=== PATIENT | female | born 1965 | race Caucasian/White ===

== ENCOUNTER → 2016-05-29 | Outpatient (CLI) | payer BC ==
[~2016-05-29] MED LIST: CALCIUM600 MG PO; ESTRADERM 0.05 M1 EA TOP; FLEXERIL 10 MG10 MG PO; LORTAB 7.5-3251 EACH PO; NEURONTIN 300300 MG PO; PANTOPRAZOLE SO40 MG PO; PERCOCET 10-321 EACH PO; POTASSIUM99 M1 PO; TRIAMTERENE-HC1 EACH PO; XARELTO10 MG PO
[2016-05-29 11:23] LABS: HEMOGLOBIN 14.3 gm/dl (12.3-15.3); RED BLOOD COUNT 4.86 M/UL (4.00-5.10); WHITE BLOOD COUNT 6.3 K/UL (4.5-11.0)
[2016-05-29 11:42] LABS: BUN/CREATININE RATIO 16 (0-10)
== END ==
LOC: OPSV2 10:00 → EDSTATUS 10:00 → OPSV2 10:11
PROVIDERS: Orthopaedic Surgery
DX: Z01.810 Encounter for preprocedural cardiovascular examination (principal); Z01.812 Encounter for preprocedural laboratory examination; M17.12 Unilateral primary osteoarthritis, left knee
CPT/HCPCS: 36415; 80048; 81001; 83036; 85025; 86140; 87081; 93005

== ENCOUNTER → 2016-06-11 | Outpatient (CLI) | payer BC ==
[2016-06-11 10:44] LABS: BUN/CREATININE RATIO 18 (0-10)
== END ==
LOC: LAB 09:17
PROVIDERS: Orthopaedic Surgery
DX: Z01.812 Encounter for preprocedural laboratory examination (principal)
CPT/HCPCS: 36415; 80048; 86850; 86900; 86901

== ENCOUNTER 2016-06-12 05:42 | Observation (INO) | payer BC ==
[~2016-06-12] VITALS: Ht 157.5 cm; Wt 111.6 kg
[2016-06-12] MEDS ORDERED: ESTRADERM 0.05 M1 EA TOP (06:44)
[2016-06-12] MEDS ORDERED: PANTOPRAZOLE SO40 MG PO (06:45)
[2016-06-12] MEDS ORDERED: NEURONTIN 300300 MG PO (06:45)
[2016-06-12] MEDS ORDERED: FLEXERIL 10 MG10 MG PO (06:45)
[2016-06-12] MEDS ORDERED: TRIAMTERENE-HC1 EACH PO (06:46)
[2016-06-12] MEDS ORDERED: POTASSIUM99 M1 PO (06:47)
[2016-06-12] MEDS ORDERED: CALCIUM600 MG PO (06:47)
[2016-06-12] MEDS ORDERED: LORTAB 7.5-3251 EACH PO (06:47)
[2016-06-13 04:47] LABS: HEMOGLOBIN 10.9 gm/dl (12.3-15.3); RED BLOOD COUNT 3.77 M/UL (4.00-5.10); WHITE BLOOD COUNT 12.3 K/UL (4.5-11.0)
[2016-06-13 05:06] LABS: BUN/CREATININE RATIO 16 (0-10)
[2016-06-13] MEDS ORDERED: XARELTO10 MG PO (11:54)
[2016-06-13] MEDS ORDERED: PERCOCET 10-321 EACH PO (11:55)
== END 2016-06-13 15:06 | disposition home or self-care (01) ==
LOC: OR 05:42 → EDSTATUS 08:15 → M/S 15:18
PROVIDERS: ADMIT Orthopaedic Surgery
PROC: 0SRD0L9 Replacement of Left Knee Joint with Medial Unicondylar Synthetic Substitute, Cemented, Open Approach (ICD-10-PCS; principal; 2016-06-12 08:15)
DX: M17.12 Unilateral primary osteoarthritis, left knee (principal); E66.01 Morbid (severe) obesity due to excess calories; M94.262 Chondromalacia, left knee; F41.9 Anxiety disorder, unspecified; F32.9 Major depressive disorder, single episode, unspecified; M06.9 Rheumatoid arthritis, unspecified; M79.7 Fibromyalgia; E07.9 Disorder of thyroid, unspecified; I10 Essential (primary) hypertension; F17.210 Nicotine dependence, cigarettes, uncomplicated; G47.30 Sleep apnea, unspecified; Z68.42 Body mass index [BMI] 45.0-49.9, adult; Z90.49 Acquired absence of other specified parts of digestive tract; Z90.710 Acquired absence of both cervix and uterus; Z79.891 Long term (current) use of opiate analgesic; Z87.01 Personal history of pneumonia (recurrent); Z79.899 Other long term (current) drug therapy; Z80.9 Family history of malignant neoplasm, unspecified; Z82.49 Family history of ischemic heart disease and other diseases of the circulatory system; Z80.42 Family history of malignant neoplasm of prostate; Z80.1 Family history of malignant neoplasm of trachea, bronchus and lung; Z80.8 Family history of malignant neoplasm of other organs or systems; Z83.3 Family history of diabetes mellitus; Z87.440 Personal history of urinary (tract) infections; Z87.19 Personal history of other diseases of the digestive system
CPT/HCPCS: 36415; 73560; 80048; 85025; 96365; 96366; 96375; 96376; 97116; 97530; 97535; C1713; G0378; J0690; J1100; J1885; J2250; J2270; J2405; J2710; J2795; J3010; J3370; J7030; J7120